=== PATIENT | female | born 1985 | race Caucasian/White ===

== ENCOUNTER 2020-11-27 07:18 | Day surgery (SDC) | payer OTHER ==
[~2020-11-27] VITALS: Ht 160 cm; Wt 61.2 kg
[~2020-11-27 07:18] MED LIST: IBUP-974 PO
[2020-11-27] MEDS ORDERED: BUPIVACAINE-MPF 0.25% 30 ML VIAL INJ ONE ×2 (08:23→10:41)
[2020-11-27] MEDS ORDERED: NACL 0.9% 1,000 ML IV SCH (08:40)
[2020-11-27] MEDS ORDERED: MEPERIDINE 25 MG/ML SYR IVP PRN (08:40)
[2020-11-27] MEDS ORDERED: HYDROmorphone 1 MG/ML AMP IVP PRN (08:40)
[2020-11-27] MEDS ORDERED: ONDANSETRON 4 MG/2 ML VIAL IVP PRN (08:40)
[2020-11-27] MEDS ORDERED: LIDOCAINE 1% 500 MG/50 ML VIAL ONE (10:41)
== END 2020-11-27 12:44 | disposition home or self-care (01) ==
LOC: MDS 07:18 → MFCC 07:20 → MDS 12:44
PROVIDERS: ATTEND Surgery
DX: K64.8 Other hemorrhoids (principal); F17.200 Nicotine dependence, unspecified, uncomplicated; Z20.828 Contact with and (suspected) exposure to other viral communicable diseases
CPT/HCPCS: 46260; 71045; 81025; J2001; J3490; J7120; U0003

== ENCOUNTER 2023-04-22 15:32 | Emergency (ER) | payer OTHER ==
[~2023-04-22] VITALS: Ht 160 cm; Wt 62.6 kg
[2023-04-22 15:36] VITALS: BP 119/83
[2023-04-22] MEDS ORDERED: NAPR-1704 PO (16:15)
[2023-04-22] MEDS ORDERED: DICL100G5 TP (16:15)
[2023-04-22] MEDS ORDERED: KETOROLAC 30 MG/ML VIAL IM ONE (16:15)
--- NOTE | 2023-04-22 16:40 | NUR ---
Patient discharged with v/s stable. Written and verbal after care instructions given and explained. Patient alert, oriented and verbalized understanding of instructions. Ambulatory with steady gait. All questions addressed prior to discharge. ID band removed. Patient advised to follow up with PMD. Rx of diclofenac, naproxen given. Patient educated on indication of medication including possible reaction and side effects. Opportunity to ask questions provided and answered.
== END 2023-04-22 16:39 | disposition home or self-care (01) ==
LOC: MED 15:32
DX: M25.561 Pain in right knee (principal); M25.562 Pain in left knee; Z79.1 Long term (current) use of non-steroidal anti-inflammatories (NSAID); Z88.2 Allergy status to sulfonamides
CPT/HCPCS: 73562; 96372; 99283; J1885